=== PATIENT | male | born 1975 | race Caucasian/White ===

== ENCOUNTER 2018-05-24 06:12 | Emergency (ER) | payer OTHER ==
--- NOTE | 2018-05-24 06:51 | EDM.PDOC ---
ED HPI GENERAL MEDICAL PROBLEM - General Chief Complaint: Chest Pain Stated Complaint: CHEST PAIN Time Seen by Provider: 05/24/18 06:22 Source of Information: Reports: Patient, Family () History Limitations: Reports: No Limitations - History of Present Illness INITIAL COMMENTS - FREE TEXT/NARRATIVE: The patient states that he developed left-sided chest pain, sharp in character, a pain, not a discomfort, this past , 05/20/2018. The pain comes and goes , lasting a few hours, recurring many times per day. When it comes on, it comes on suddenly. The pain does not radiate. The patient has not identified any modifiers. When he has the pain, he sometimes has associated dyspnea and dizziness, but no nausea, diaphoresis, or sense of impending doom. The patient states that he has had this same pain perhaps 40 times over the past several years. He has had medical evaluation in ED's 10 or 15 times, most recently 1-2 years ago. He states that his workups are always negative, but he states that he has never been recommended to follow-up. The patient relates that he had mitral valve regurgitation, status post mitral valve repair a number of years ago, and that he had atrial fibrillation associated with that surgery. He states that he was on Coumadin for short period of time, then told that he did not need to take it anymore. He states that he continues to have intermittent episodes, however, of lightheadedness, shortness of breath, and the sense of a rapid and irregular heartbeat, which she presumes is due to atrial fibrillation. He has not had any of these symptoms recently. The patient does not have a PCP. Left Chest Pain Score (Numeric/FACES): 5 - Related Data Allergies Allergy/AdvReac Type Severity Reaction Status Date / Time No Known Allergies Allergy Verified 05/24/18 06:21 Home Meds: Home Meds . [No Known Home Meds] 05/24/18 [History] Past Medical History Cardiovascular History: Reports: Afib (paroxysmal), Other (See Below) (Mitral valve regurgitation, s/p repair) - Past Surgical History HEENT Surgical History: Reports: Oral Surgery (Fowler teeth extraction) Cardiovascular Surgical History: Reports: Other (See Below) (Mitral valve repair ) Social & Family History - Tobacco Use Smoking Status *Q: Current Every Day Smoker Years of Tobacco use: 30 Packs/Tins Daily: 1 - Caffeine Use Caffeine Use: Reports: None - Alcohol Use Alcohol Use History: Yes Alcohol Use Frequency: Rarely - Recreational Drug Use Recreational Drug Use: No - Living Situation & Occupation Living situation: Reports: , with Spouse, with Family (1 child) Occupation: Employed (Construction) ED ROS GENERAL - Review of Systems Review Of Systems: ROS reveals no pertinent complaints other than HPI. ED EXAM, GENERAL - Physical Exam Exam: See Below Exam Limited By: No Limitations General Appearance: Alert, WD/WN, No Apparent Distress Eye Exam: Bilateral Eye: EOMI, Normal Inspection Ears: Normal External Exam, Hearing Grossly Normal Nose: Normal Inspection, No Blood Throat/Mouth: Normal Inspection, Normal Lips, Normal Voice, No Airway Compromise Head: Atraumatic, Normocephalic Neck: Normal Inspection, Full Range of Motion Respiratory/Chest: No Respiratory Distress, Lungs Clear, Normal Breath Sounds, No Accessory Muscle Use, Other (Reproducible tenderness to palpation of the left pectoralis muscle. The pain is also reproduced with the patient flexing his pectoralis muscle by squeezing his hands together in front of his chest, and also by his crossing his left upper extremities across his chest.) Cardiovascular: Normal Peripheral Pulses, Regular Rate, Rhythm, No Edema, No Gallop, No JVD, No Murmur, No Rub Peripheral Pulses: 4+: Radial (L), Radial (R) GI/Abdominal: Normal Bowel Sounds, Soft, Non-Tender, No Organomegaly, No Distention, No Abnormal Bruit, No Mass (Male) Exam: Deferred Rectal (Males) Exam: Deferred Back Exam: Normal Inspection, Full Range of Motion, NT Extremities: Normal Inspection, Normal Range of Motion, No Pedal Edema, Normal Capillary Refill Neurological: Alert, Oriented, Normal Cognition, No Motor/Sensory Deficits Psychiatric: Normal Affect Skin Exam: Warm, Dry, Intact, Normal Color, No Rash Course - Vital Signs Last Recorded V/S: Last Vital Signs Temp 36.4 C 05/24/18 06:19 Pulse 59 L 05/24/18 06:54 Resp 22 H 05/24/18 06:54 BP 125/91 H 05/24/18 06:54 Pulse Ox 100 05/24/18 06:54 - Re-Assessments/Exams Free Text/Narrative Re-Assessment/Exam: 05/24/18 06:42 The patient's left-sided chest pain is noncardiac in presentation, and is reproducible with palpation, as well as with the patient flexing his left pectoralis muscle. No further workup is needed in this regard. I am more concerned, however, with the patient's report of a history of atrial fibrillation, and continued symptoms of palpitations, with him not being on anticoagulation. For this, I am going to recommend that the patient follow-up with a Advanced Quality Engineer. I will refer him to Dr. Patrick. Departure - Departure Time of Disposition: 06:42 Disposition: Home, Self-Care 01 Condition: Good Clinical Impression: Left-sided chest wall pain, Palpitations, History of atrial fibrillation - Discharge Information *PRESCRIPTION DRUG MONITORING PROGRAM REVIEWED*: Not Applicable *COPY OF PRESCRIPTION DRUG MONITORING REPORT IN PATIENT VIN: Not Applicable Instructions: Nonspecific Chest Pain, [id number], Palpitations, [id number] Referrals: PCP,None [Primary Care Provider] - Narinder Patrick MD [Ordering Only Provider] - Lo Elizabeth MD [Physician] - Forms: ED Department Discharge Additional Instructions: You were seen in the emergency room for recurrent left-sided chest pain. On physical examination, your chest pain is due to pain in your left pectoralis muscle. Your pain is not related to your heart, and no further workup was recommended. You have a history of atrial fibrillation, continue to have intermittent palpitations, yet are not on an anticoagulant. For this, we recommend that you follow-up with the Advanced Quality Engineer Dr. Narinder Patrick at the next available appointment. Dr. Patrick sees patients once a month in [place]. We also recommend that you follow-up with Dr. Lo Elizabeth, to establish a primary care physician. If any other problems, please do not hesitate to return to the ER.
== END 2018-05-24 06:57 | disposition home or self-care (01) ==
LOC: JD.ED 06:12
DX: R00.2 Palpitations (principal); R07.89 Other chest pain; I48.91 Unspecified atrial fibrillation; F17.210 Nicotine dependence, cigarettes, uncomplicated
CPT/HCPCS: 99284

== ENCOUNTER 2018-05-25 10:54 | Emergency (ER) | payer OTHER ==
[2018-05-25] MEDS ORDERED: Sodium Chloride 0.9% 10 ML Syringe FLUSH PRN (11:20)
--- NOTE | 2018-05-25 11:28 | EDM.PDOC ---
ED HPI GENERAL MEDICAL PROBLEM - General Chief Complaint: Respiratory Problem Stated Complaint: SOB Time Seen by Provider: 05/25/18 11:03 Source of Information: Reports: Patient History Limitations: Reports: No Limitations - History of Present Illness INITIAL COMMENTS - FREE TEXT/NARRATIVE: 43-year-old male presents for evaluation and treatment of chest pain and shortness of breath. Patient was seen in our ED yesterday morning for chest pain. This is attributed to soreness to the pectoralis muscle and he was sent home. No labs or imaging were done. He states that he had chest pain all day yesterday. Went to bed with chest pain and he had a "little bit " this morning when he woke up. He developed shortness of breath yesterday after being seen in the ED. Patient reports that he went to work today. 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 He reports feeling lightheaded as well. No nausea, vomiting, diaphoresis or syncope. He denies any recent fevers, cough or cold symptoms. No pain or swelling in his legs. No abdominal pain. Patient smokes about a pack a day. Denies any history of hypertension, hypercholesterolemia or diabetes. Significant cardiac history for paroxysmal A. fib and a mitral valve repair. He is not currently on Coumadin. Reports he was on Coumadin for a month after his mitral valve repair surgery was taken off as he was told he did not need this. Mitral valve repairs was done several years ago in [place]. - Related Data Allergies Allergy/AdvReac Type Severity Reaction Status Date / Time No Known Allergies Allergy Verified 05/24/18 06:21 Home Meds: Home Meds . [No Known Home Meds] 05/24/18 [History] Past Medical History Cardiovascular History: Reports: Afib, Other (See Below) - Past Surgical History HEENT Surgical History: Reports: Oral Surgery Cardiovascular Surgical History: Reports: Other (See Below) Social & Family History - Tobacco Use Smoking Status *Q: Current Every Day Smoker Years of Tobacco use: 20 Packs/Tins Daily: 1 - Caffeine Use Caffeine Use: Reports: None - Recreational Drug Use Recreational Drug Use: No - Living Situation & Occupation Living situation: Reports: , with Spouse, with Family (1 child) Occupation: Employed (Construction) ED ROS GENERAL - Review of Systems Review Of Systems: See Below Constitutional: Denies: Fever, Diaphoresis Respiratory: Reports: Shortness of Breath. Denies: Cough Cardiovascular: Reports: Chest Pain, Lightheadedness GI/Abdominal: Denies: Abdominal Pain, Nausea, Vomiting Musculoskeletal: Denies: Leg Pain Neurological: Denies: Syncope ED EXAM, GENERAL - Physical Exam Exam: See Below Exam Limited By: No Limitations General Appearance: Alert, WD/WN, No Apparent Distress, Thin Eye Exam: Bilateral Eye: Normal Inspection Ears: Normal External Exam Nose: Normal Inspection Throat/Mouth: Normal Inspection, Normal Lips, Normal Voice, No Airway Compromise Respiratory/Chest: No Respiratory Distress, Lungs Clear, Normal Breath Sounds Cardiovascular: Normal Peripheral Pulses, Regular Rate, Rhythm, No Murmur GI/Abdominal: Soft, Non-Tender Neurological: Alert, Oriented, Normal Cognition Psychiatric: Normal Affect, Normal Mood Skin Exam: Warm, Dry, Normal Color EKG INTERPRETATION EKG Date: 05/25/18 Time: 11:00 Rhythm: NSR Rate (Beats/Min): 75 [place]: LAD-Left [place] Deviation P-Wave: Present QRS: Normal ST-T: Normal QT: Normal EKG Interpretation Comments: NSR at 75 bpm. Left axis deviation. No acute ST segment changes. Reviewed by myself and Dr. Brooks. Course - Vital Signs Last Recorded V/S: Last Vital Signs Temp 98.6 F 05/25/18 10:59 Pulse 74 05/25/18 10:59 Resp 20 05/25/18 10:59 BP 133/89 05/25/18 10:59 Pulse Ox 100 05/25/18 10:59 - Orders/Labs/Meds Labs: Laboratory Tests 05/25/18 05/25/18 05/25/18 Range/Units 11:05 11:05 11:05 WBC 10.93 H (4.23-9.07) K/mm3 RBC 4.92 (4.63-6.08) M/mm3 Hgb 15.4 (13.7-17.5) gm/L Hct 44.9 (40.1-51.0) % MCV 91.3 (79.0-92.2) fl MCH 31.3 (25.7-32.2) pg MCHC 34.3 (32.2-35.5) g/dl RDW Std Deviation 44.5 H (35.1-43.9) fL Plt Count 329 (163-337) K/mm3 MPV 9.8 (9.4-12.3) fl Neutrophils % (Manual) 78 H (40-60) % Band Neutrophils % 0 (0-10) % Lymphocytes % (Manual) 16 L (20-40) % Atypical Lymphs % 0 % Monocytes % (Manual) 5 (2-10) % Eosinophils % (Manual) 1 (0.8-7.0) % Basophils % (Manual) 0 L (0.2-1.2) Platelet Estimate Adequate RBC Morph Comment Normal Sodium 139 (136-145) mEq/L Potassium 3.7 (3.5-5.1) mEq/L Chloride 106 (98-107) mEq/L Carbon Dioxide 24 (21-32) mEq/L Anion Gap 12.7 (5-15) BUN 16 (7-18) mg/dL Creatinine 1.0 (0.7-1.3) mg/dL Est Cr Clr Drug Dosing 89.77 mL/min Estimated GFR (MDRD) > 60 (>60) mL/min BUN/Creatinine Ratio 16.0 (14-18) Glucose 105 (74-106) mg/dL Calcium 8.4 L (8.5-10.1) mg/dL Total Bilirubin 0.7 (0.2-1.0) mg/dL AST 13 L (15-37) U/L ALT 10 L (16-63) U/L Alkaline Phosphatase 56 (46-116) U/L CK-MB (CK-2) 1.2 (0-3.6) ng/ml Troponin I < 0.017 (0.00-0.056) ng/mL NT-Pro-B Natriuret Pep 89 (0-125) pg/mL Total Protein 7.0 (6.4-8.2) g/dl Albumin 3.9 (3.4-5.0) g/dl Globulin 3.1 gm/dL Albumin/Globulin Ratio 1.3 (1-2) TSH 3rd Generation (0.358-3.74) uIU/mL 05/25/18 05/25/18 Range/Units 11:05 14:02 WBC (4.23-9.07) K/mm3 RBC (4.63-6.08) M/mm3 Hgb (13.7-17.5) gm/L Hct (40.1-51.0) % MCV (79.0-92.2) fl MCH (25.7-32.2) pg MCHC (32.2-35.5) g/dl RDW Std Deviation (35.1-43.9) fL Plt Count (163-337) K/mm3 MPV (9.4-12.3) fl Neutrophils % (Manual) (40-60) % Band Neutrophils % (0-10) % Lymphocytes % (Manual) (20-40) % Atypical Lymphs % % Monocytes % (Manual) (2-10) % Eosinophils % (Manual) (0.8-7.0) % Basophils % (Manual) (0.2-1.2) Platelet Estimate RBC Morph Comment Sodium (136-145) mEq/L Potassium (3.5-5.1) mEq/L Chloride (98-107) mEq/L Carbon Dioxide (21-32) mEq/L Anion Gap (5-15) BUN (7-18) mg/dL Creatinine (0.7-1.3) mg/dL Est Cr Clr Drug Dosing mL/min Estimated GFR (MDRD) (>60) mL/min BUN/Creatinine Ratio (14-18) Glucose (74-106) mg/dL Calcium (8.5-10.1) mg/dL Total Bilirubin (0.2-1.0) mg/dL AST (15-37) U/L ALT (16-63) U/L Alkaline Phosphatase (46-116) U/L CK-MB (CK-2) (0-3.6) ng/ml Troponin I < 0.017 (0.00-0.056) ng/mL NT-Pro-B Natriuret Pep (0-125) pg/mL Total Protein (6.4-8.2) g/dl Albumin (3.4-5.0) g/dl Globulin gm/dL Albumin/Globulin Ratio (1-2) TSH 3rd Generation 2.825 (0.358-3.74) uIU/mL Meds: Medications Discontinued Medications Generic Name Dose Route Start Last Admin Trade Name Freq PRN Reason Stop Dose Admin Sodium Chloride 10 ml 05/25/18 11:20 05/25/18 11:39 Saline Flush FLUSH 10 ml ASDIRECTED PRN Administration Keep Vein Open - Radiology Interpretation Free Text/Narrative:: Chest: 2 views of the chest were obtained. Comparison: No prior study. Heart size and mediastinum are normal. Previous sternotomy is noted. Lungs are clear but slightly hyperinflated. Bony structures are unremarkable. Impression: 1. Lungs slightly hyperinflated raising the possibility of asthma or smoking history. 2. Previous sternotomy. 3. Nothing acute is otherwise seen. - Re-Assessments/Exams Free Text/Narrative Re-Assessment/Exam: 05/25/18 12:12 Reviewed the labs, ekg and chest xray results. No chest pain since coming to the ED. PERC score is 0. No further testing recommended to rule out PE. HEART score is 3; low rish risk of MACE 0.9 to 1.7 % over the next 6 weeks. 05/25/18 14:47 Repeat trop returned normal at <0.017. Reviewed with the patient. Recommend follow-up with family med for a stess test. May also need pulmonary function testing. Chest xray suggest early emphysema changes. Discharge instructions as documented. Departure - Departure Time of Disposition: 14:49 Disposition: Home, Self-Care 01 Condition: Fair Clinical Impression: Left-sided chest wall pain, History of atrial fibrillation - Discharge Information *PRESCRIPTION DRUG MONITORING PROGRAM REVIEWED*: No *COPY OF PRESCRIPTION DRUG MONITORING REPORT IN PATIENT VIN: No Instructions: Chest Wall Pain, [id number], Atrial Fibrillation, [id number] Referrals: PCP,None [Primary Care Provider] - Forms: ED Department Discharge, ED Return to Work/School Form Additional Instructions: Follow-up with family medicine this week or early next week to recheck on your symptoms. I also recommend you have a stress test done. You may require further testing such as pulmonary function testing. Family medicine can order this for you. At the [facility] recommend Marilynn Connell or Dr. Giraldo. Call to schedule with one of these providers. Recommend seeing cardiology. may call [phone] to schedule with a servicenow administrator. Recommend Dr. Tafoya at [facility] in [place]. Discuss a referral with your PCP if needing additional help with seeing him. Rest. Note given for work. Please return to the ER if your symptoms change or worsen.
--- NOTE | 2018-05-25 12:03 | CR ---
Chest: Two views of the chest were obtained. Comparison: No prior study. Heart size and mediastinum are normal. Previous sternotomy is noted. Lungs are clear but slightly hyperinflated. Bony structures are unremarkable. Impression: 1. Lungs slightly hyperinflated raising the possibility of asthma or smoking history. 2. Previous sternotomy. 3. Nothing acute is otherwise seen. Diagnostic code #2
== END 2018-05-25 15:11 | disposition home or self-care (01) ==
LOC: JD.ED 10:54
DX: R07.89 Other chest pain (principal); I48.91 Unspecified atrial fibrillation; F17.210 Nicotine dependence, cigarettes, uncomplicated
CPT/HCPCS: 36415; 71046; 80053; 82553; 83880; 84443; 84484; 85007; 85027; 93005; 99285; J7050

== ENCOUNTER 2020-01-22 06:54 | Emergency (ER) | payer SELFPAY ==
--- NOTE | 2020-01-22 07:26 | EDM.PDOC ---
ED HPI GENERAL MEDICAL PROBLEM - General Chief Complaint: Skin Complaint Stated Complaint: SKIN COMPLAINT Time Seen by Provider: 01/22/20 07:09 Source of Information: Reports: Patient, Family () History Limitations: Reports: No Limitations - History of Present Illness INITIAL COMMENTS - FREE TEXT/NARRATIVE: Mr. Hill is a pleasant 44-year-old man with a past medical history significant for untreated paroxysmal atrial fibrillation and mitral valve regurgitation status post mitral valve repair, who states that he woke up with mild puffiness to the left side of his face around 06:00 this morning. There is no pain involved, and while the puffiness includes the soft tissue around his left eye, there is no left eye itchiness or sensation of entrapment. He does not have any diplopia or blurry vision. He denies any oral swelling or itchiness sensation. No respiratory issues, such as dyspnea or wheezing. No gastrointestinal issues. No pruritus, anywhere, and no visible rash. No prior similar symptoms. The patient did not take any [id number] or home remedies prior to coming to the ED. Here in the ED, the patient is found to be hemodynamically stable, afebrile, saturating 99% on room air. The patient does not have a PCP. He does not have a Optical Engineering Technician. He did not receive an influenza vaccine this season, and declined an offer to receive one here today. - Related Data Allergies Allergy/AdvReac Type Severity Reaction Status Date / Time No Known Allergies Allergy Verified 05/24/18 06:21 Home Meds: Home Meds . [No Known Home Meds] 05/24/18 [History] Past Medical History Cardiovascular History: Reports: Afib (paroxysmal), Other (See Below) (Mitral valve regurgitation, status post repair) - Past Surgical History HEENT Surgical History: Reports: Oral Surgery (wisdom tooth extraction) Cardiovascular Surgical History: Reports: Other (See Below) (Mitral valve repair ) Social & Family History - Family History Family Medical History: Noncontributory - Tobacco Use Smoking Status *Q: Current Every Day Smoker Years of Tobacco use: 33 Packs/Tins Daily: 1 Packs/Tins Daily Comment: Down from 2 ppd - Caffeine Use Caffeine Use: Reports: None - Alcohol Use Alcohol Use History: Yes Alcohol Use Frequency: Rarely - Recreational Drug Use Recreational Drug Use: No - Living Situation & Occupation Living situation: Reports: , with Spouse, with Family (2 kids) Occupation: Employed (medical imaging technician) ED ROS GENERAL - Review of Systems Review Of Systems: Comprehensive ROS is negative, except as noted in HPI. ED EXAM, SKIN/RASH Exam: See Below Exam Limited By: No Limitations General Appearance: Alert, WD/WN, No Apparent Distress Eye Exam: Left Eye: Other (puffiness to skin around left eye), Bilateral Eye: EOMI Ears: Normal External Exam, Normal Canal, Hearing Grossly Normal, Normal TMs Nose: Normal Inspection, Normal Mucosa, No Blood Throat/Mouth: Normal Inspection, Normal Lips, Normal Teeth, Normal Gums, Normal Oropharynx, Normal Voice, No Airway Compromise Head: Atraumatic, Facial Swelling (mild, left side only) Neck: Normal Inspection, Supple, Non-Tender, Full Range of Motion. No: Lymphadenopathy (L), Lymphadenopathy (R) Respiratory/Chest: No Respiratory Distress, Lungs Clear, Normal Breath Sounds, No Accessory Muscle Use Cardiovascular: Normal Peripheral Pulses, Regular Rate, Rhythm, No Edema, No Gallop, No JVD, No Murmur, No Rub Peripheral Pulses: 4+: Radial (L), Radial (R) GI/Abdominal: Normal Bowel Sounds, Soft, Non-Tender, No Organomegaly, No Distention, No Abnormal Bruit, No Mass (Male) Exam: Deferred Rectal (Males) Exam: Deferred Back Exam: Normal Inspection, Full Range of Motion, NT Extremities: Normal Inspection, Normal Range of Motion, No Pedal Edema, Normal Capillary Refill Neurological: Alert, Oriented, Normal Cognition, No Motor/Sensory Deficits Psychiatric: Normal Affect Skin: Warm, Dry, Intact, Normal Color, No Rash Course - Vital Signs Last Recorded V/S: Last Vital Signs Temp 36.1 C 01/22/20 07:02 Pulse 68 01/22/20 07:02 Resp 16 01/22/20 07:02 BP 131/96 H 01/22/20 07:02 Pulse Ox 99 01/22/20 07:02 - Re-Assessments/Exams Free Text/Narrative Re-Assessment/Exam: 01/22/20 07:19 I suspect that the mild puffiness that the patient has on the left side of his face is due to an allergic reaction, possibly to a chemical in his bed sheets. I am recommending that the patient apply an ice pack to the left side of his face as much as possible today, and that he purchase [id number] cetrizine (Zyrtec) and begin taking 1 tablet twice a day. I am recommending that he and his switched to a hypoallergenic laundry detergent, and if his symptoms fail to improve, he can follow-up with an material requisitioner that I will refer him to. Departure - Departure Time of Disposition: 07:21 Disposition: Home, Self-Care 01 Condition: Good Clinical Impression: Contact allergic reaction - Discharge Information *PRESCRIPTION DRUG MONITORING PROGRAM REVIEWED*: Not Applicable *COPY OF PRESCRIPTION DRUG MONITORING REPORT IN PATIENT VIN: Not Applicable Referrals: Kisha Saucedo MD [Ordering Only Provider] - Additional Instructions: You were seen in the emergency room after waking up with puffiness to the left side of your face. Based on your history and physical examination, we suspect that the puffiness is due to a mild allergic reaction to something that your face is, in contact with, likely on your bed sheets. We recommend that you apply an ice pack to the left side of your face as much as possible today. We recommend that you purchase [id number] cetrizine (Zyrtec) and take 1 tablet twice a day, as directed on the label. We recommend that you switch to a hypoallergenic laundry detergent. If your symptoms fail to improve despite these measures, please follow-up with the Environmental Issues Instructor Dr. Kisha Saucedo in [place]. If your symptoms worsen, in particular, if you develop any difficulty breathing or wheezing, please return to the ER right away. Sepsis Event Note - Evaluation Sepsis Screening Result: No Definite Risk - Focused Exam Vital Signs: Vital Signs Temp Pulse Resp BP Pulse Ox 01/22/20 07:02 36.1 C 68 16 131/96 H 99 Date Exam was Performed: 01/22/20 Time Exam was Performed: 07:19
== END 2020-01-22 07:30 | disposition home or self-care (01) ==
LOC: JD.ED 06:54
DX: T78.40XA Allergy, unspecified, initial encounter (principal); F17.210 Nicotine dependence, cigarettes, uncomplicated; I48.91 Unspecified atrial fibrillation
CPT/HCPCS: 99283